=== PATIENT | female | born 1985 | race African-American/Black ===

== ENCOUNTER 2023-12-21 19:18 | Emergency (ER) | payer MEDICAID, SELFPAY | END 2023-12-21 20:47 | disposition home or self-care (01) | LOC: CSHERS 19:18 | DX: J01.90 Acute sinusitis, unspecified (principal); J30.9 Allergic rhinitis, unspecified; J04.0 Acute laryngitis; I10 Essential (primary) hypertension; E11.9 Type 2 diabetes mellitus without complications | CPT/HCPCS: 99284 ==

== ENCOUNTER → 2024-08-06 | Emergency (ER) | payer MEDICAID, SELFPAY ==
[~2024-08-06] MED LIST: Acetaminophen 500 MG TAB ONE; Dexamethasone 10 MG/ML VIAL ONE
== END ==
LOC: CSHERS 13:25
DX: J01.00 Acute maxillary sinusitis, unspecified (principal); J06.9 Acute upper respiratory infection, unspecified; I10 Essential (primary) hypertension; J44.9 Chronic obstructive pulmonary disease, unspecified; E11.9 Type 2 diabetes mellitus without complications
CPT/HCPCS: 71045; 87081; 87428; 87430; 96372; J1100